=== PATIENT | female | born 1990 | race African-American/Black ===

== ENCOUNTER 2021-05-06 18:12 | Emergency (ER) | payer OTHER ==
[~2021-05-06] VITALS: Ht 172.7 cm; Wt 140.6 kg
[2021-05-06 18:12] VITALS: BP_SYST 126
[2021-05-06] MEDS ORDERED: DIPH-TET-PERTUS Vaccine 0.5 ML VIAL (ADACEL) I.M. ONE (18:30)
[2021-05-06] MEDS ORDERED: LIDOCAINE 1% 10 MG/ML, 20 ML MDV INJ ONE (18:45)
[2021-05-06] MEDS ORDERED: BACITRACIN/POLYMYXIN B SULFATE 30 GM TOPICAL OINT. TP SCH (19:15)
[2021-05-06] MEDS ORDERED: BACITRACIN 1 GM OINT TP ONE (19:15)
[2021-05-06 19:23] VITALS: BP_SYST 138
== END 2021-05-06 19:24 | disposition home or self-care (01) ==
LOC: SED 18:12
DX: S61.412A Laceration without foreign body of left hand, initial encounter (principal); W26.0XXA Contact with knife, initial encounter; Y93.89 Activity, other specified; Y92.89 Other specified places as the place of occurrence of the external cause; Y99.8 Other external cause status
CPT/HCPCS: 12001; 90471; 90715; 99283; J2001